=== PATIENT | male | born 1965 | race Caucasian/White ===

== ENCOUNTER 2021-01-12 02:32 | Inpatient (IN) | payer MEDICARE, MEDICAID ==
[2021-01-12 03:33] LABS: #Basophils 0.1 10x3/uL (0.0-0.2); #Eosinphils 0.2 10x3/uL (0.0-0.5); #Monocytes 0.6 10x3/uL (0.0-1.1); #Neutrophils 9.2 10x3/uL (1.5-8.4); %Eosinophils 2.2 % (0.0-6.0); %Monocytes 5.6 % (0.0-10.0); %Neutrophils 85.6 % (40.0-75.0); Hemoglobin 9.8 g/dL (13.5-17.5); Mean Corpuscular HGB CONC 34.3 g/dL (32.0-36.0); Mean Corpuscular Hemoglobin 30.3 pg (27.0-33.0); Mean Corpuscular Volume 88.5 fl (81.2-95.1); RBC Distribution Width 13.2 % (11.5-14.5); Red Blood Cell (RBC) Count 3.23 10x6/uL (4.32-5.72); White Blood Cell (WBC) Count 10.7 10x3/uL (3.5-10.5)
[2021-01-12 03:43] LABS: ALT (SGPT) 12 U/L (8-55); AST (SGOT) 16 U/L (5-34); Alkaline Phosphatase 88 U/L (40-110); Anion Gap 16 mmol/L (10-20); BUN (Urea Nitrogen) 33 mg/dL (8.4-25.7); Bilirubin, Total 0.7 mg/dL (0.2-1.2); Calc. Creatinine Clearance 0 mL/min (70-130); Calcium 9.3 mg/dL (7.8-10.44); Carbon Dioxide 26 mmol/L (22-29); Chloride 101 mmol/L (98-107); Globulin 3.4 g/dL (2.4-3.5); Glucose 274 mg/dL (70-105); Potassium 4.4 mmol/L (3.5-5.1); Protein, Total 7.4 g/dL (6.0-8.3); Sodium 139 mmol/L (136-145)
[2021-01-12 03:58] LABS: Large Platelets MODERATE; Mean Platelet Volume 9.9 fl (7.4-10.4); Platelet Count 198 10x3/uL (150-450); Platelet Morphology Comment Appears Adequate
[2021-01-12 03:59] LABS: RBC Morphology Normal
[2021-01-12 04:06] LABS: CKMB 3.9 ng/mL (0-6.6)
[2021-01-12 04:32] LABS: SARS-CoV-2 NAA Rapid Test Not Detected (NotDetected)
[2021-01-12] MEDS ORDERED: hydrALAZINE 25 MG TAB ONE (04:35)
[2021-01-12] MEDS ORDERED: hydrALAZINE 20 MG/ML VIAL SLOW IVP PRN (05:26)
[2021-01-12] MEDS ORDERED: traMADol HCl 50 MG TAB PO PRN (05:27)
[2021-01-12] MEDS ORDERED: Nitroglycerin 0.4 MG TAB (25 Tab Bottle) SL PRN (05:27)
[2021-01-12] MEDS ORDERED: Furosemide 100 MG/10 ML VIAL SLOW IVP SCH (05:30)
[2021-01-12] MEDS ORDERED: Nitroglycerin 2% Ointment 1 INCH/1 GM Packet ONE (06:21)
[2021-01-12] MEDS: Nitroglycerin 2% Ointment 1 INCH/1 GM Packet TOP SCH ×2 (07:05→11:40)
[2021-01-12 08:10] LABS: Actual Bicarbonate (HCO3a) 27.7 mEq/L (22-28); Base Excess (BEa) 3.3 mEq/L (-2.0 to +3.0); CO2 Tension 41.1 mmHg (35.0-45.0); Calcium, Ionized (arterial) 1.18 mmol/L (1.12-1.30); Carboxyhemoglobin (COHb) 0.3 gm% (0.0-3.0); Hemoglobin (Hb) 9.5 g/dL (14.0-18.0); O2 Tension (PaO2), arterial 92.7 mmHg (80.0-100.0); Potassium - ABG Lab 4.2 mmol/L (3.70-5.30); Puncture Site RRA; pH, Arterial 7.45 (7.35-7.45)
[2021-01-12 08:14] LABS: ALV-art Gradient 212.425 mmHg (0-20)
[2021-01-12] MEDS ORDERED: CALCIFEDIOL 30 MCG PO SCH (09:00)
[2021-01-12] MEDS: Acetaminophen 500 MG TAB PO SCH ×4 (09:04→21:00)
[2021-01-12] MEDS: Carvedilol 6.25 MG TAB PO SCH ×2 (09:04→21:01)
[2021-01-12] MEDS: Aspirin 81 mg Enteric Coated Tablet PO SCH (09:04)
[2021-01-12] MEDS: hydrALAZINE 25 MG TAB PO SCH ×2 (09:05→16:25)
[2021-01-12] MEDS: Fluticasone Propionate Nasal Spray 16 gm Bottle NASAL SCH (09:05)
[2021-01-12] MEDS: Clopidogrel Bisulfate 75 MG TAB PO SCH (09:05)
[2021-01-12] MEDS: Ferrous Sulfate 325 MG TAB PO SCH (09:05)
[2021-01-12] MEDS: Heparin 5,000 UNITS/ML VIAL SC SCH ×3 (09:05→21:02)
[2021-01-12] MEDS: Furosemide 40 MG TAB PO SCH (09:05)
[2021-01-12 09:06] LABS: Troponin I 2.372 ng/mL (< 0.028)
[2021-01-12] MEDS: Lantus 1000 UNITS/10 ML VIAL SC SCH ×2 (09:06→21:02)
[2021-01-12] MEDS: NIFEdipine XL 30 MG TAB PO SCH (09:06)
[2021-01-12] MEDS: Senokot S 8.6-50 MG TAB PO SCH ×2 (09:06→21:01)
[2021-01-12] MEDS ORDERED: Heparin 10,000 UNITS/ 10 ML VIAL SLOW IVP PRN (09:15)
[2021-01-12 15:24] LABS: Cardiac Risk 5.3 (Less than 4.5)
[2021-01-12] MEDS ORDERED: guaiFENesin ER 600 MG TAB PO SCH (20:30)
[2021-01-12] MEDS: Atorvastatin Calcium 40 MG TAB PO SCH (21:00)
[2021-01-13] MEDS: Ondansetron ODT 4 MG TAB PO PRN ×2 (06:21→14:11)
[2021-01-13 08:33] LABS: #Basophils 0.1 10x3/uL (0.0-0.2); #Eosinphils 0.3 10x3/uL (0.0-0.5); #Monocytes 0.6 10x3/uL (0.0-1.1); #Neutrophils 5.8 10x3/uL (1.5-8.4); %Basophils 0.9 % (0.0-2.0); %Eosinophils 4.1 % (0.0-6.0); %Lymphocytes 12.3 % (18.0-47.0); %Monocytes 7.8 % (0.0-10.0); %Neutrophils 74.5 % (40.0-75.0); Hemoglobin 8.9 g/dL (13.5-17.5); Mean Corpuscular Volume 91.3 fl (81.2-95.1); Mean Platelet Volume 10.3 fl (7.4-10.4); Platelet Count 183 10x3/uL (150-450); RBC Distribution Width 13.3 % (11.5-14.5); Red Blood Cell (RBC) Count 2.87 10x6/uL (4.32-5.72); White Blood Cell (WBC) Count 7.7 10x3/uL (3.5-10.5)
[2021-01-13 08:47] LABS: Anion Gap 13 mmol/L (10-20); BUN (Urea Nitrogen) 21 mg/dL (8.4-25.7); Calc. Creatinine Clearance 45 mL/min (70-130); Calcium 9.1 mg/dL (7.8-10.44); Carbon Dioxide 31 mmol/L (22-29); Chloride 100 mmol/L (98-107); Glucose 98 mg/dL (70-105); Potassium 3.9 mmol/L (3.5-5.1); Sodium 140 mmol/L (136-145)
[2021-01-13] MEDS ORDERED: Loperamide HCl 2 MG CAP PO PRN (09:38)
[2021-01-13] MEDS: Acetaminophen 500 MG TAB PO SCH ×5 (10:34→21:36)
[2021-01-13] MEDS: Clopidogrel Bisulfate 75 MG TAB PO SCH (10:35)
[2021-01-13] MEDS: Carvedilol 6.25 MG TAB PO SCH ×2 (10:35→20:59)
[2021-01-13] MEDS: Fluticasone Propionate Nasal Spray 16 gm Bottle NASAL SCH (10:35)
[2021-01-13] MEDS: Aspirin 81 mg Enteric Coated Tablet PO SCH (10:35)
[2021-01-13] MEDS: Ferrous Sulfate 325 MG TAB PO SCH ×2 (10:35→10:56)
[2021-01-13] MEDS: Furosemide 40 MG TAB PO SCH (10:36)
[2021-01-13] MEDS: NIFEdipine XL 30 MG TAB PO SCH (10:36)
[2021-01-13] MEDS: Senokot S 8.6-50 MG TAB PO SCH ×2 (10:37→21:00)
[2021-01-13] MEDS: Heparin 5,000 UNITS/ML VIAL SC SCH ×3 (10:37→20:51)
[2021-01-13] MEDS: Lantus 1000 UNITS/10 ML VIAL SC SCH ×2 (10:39→20:51)
[2021-01-13 12:13] LABS: Anion Gap 14 mmol/L (10-20); BUN (Urea Nitrogen) 22 mg/dL (8.4-25.7); Calc. Creatinine Clearance 44 mL/min (70-130); Calcium 9.2 mg/dL (7.8-10.44); Carbon Dioxide 30 mmol/L (22-29); Chloride 101 mmol/L (98-107); Glucose 97 mg/dL (70-105); Potassium 3.9 mmol/L (3.5-5.1); Sodium 141 mmol/L (136-145)
[2021-01-13 12:17] LABS: Troponin I 2.126 ng/mL (< 0.028)
[2021-01-13] MEDS ORDERED: Loratadine 10 MG TAB PO SCH (14:45)
[2021-01-13 15:09] LABS: Troponin I 2.144 ng/mL (< 0.028)
[2021-01-13] MEDS: Atorvastatin Calcium 40 MG TAB PO SCH (20:59)
[2021-01-13 21:27] LABS: Critical Call Chem Troponin I RESULT DECREASING; Troponin I 1.726 ng/mL (< 0.028)
[2021-01-14 05:41] LABS: #Basophils 0.1 10x3/uL (0.0-0.2); #Eosinphils 0.3 10x3/uL (0.0-0.5); #Monocytes 0.6 10x3/uL (0.0-1.1); #Neutrophils 4.3 10x3/uL (1.5-8.4); %Basophils 1.4 % (0.0-2.0); %Eosinophils 4.6 % (0.0-6.0); %Lymphocytes 16.1 % (18.0-47.0); %Monocytes 9.3 % (0.0-10.0); %Neutrophils 68.3 % (40.0-75.0); Hemoglobin 8.2 g/dL (13.5-17.5); Mean Corpuscular HGB CONC 33.5 g/dL (32.0-36.0); Mean Corpuscular Hemoglobin 30.4 pg (27.0-33.0); Mean Corpuscular Volume 90.7 fl (81.2-95.1); Mean Platelet Volume 10.2 fl (7.4-10.4); Platelet Count 179 10x3/uL (150-450); RBC Distribution Width 13.1 % (11.5-14.5); White Blood Cell (WBC) Count 6.3 10x3/uL (3.5-10.5)
[2021-01-14 05:57] LABS: Anion Gap 14 mmol/L (10-20); BUN (Urea Nitrogen) 31 mg/dL (8.4-25.7); Calc. Creatinine Clearance 35 mL/min (70-130); Calcium 8.8 mg/dL (7.8-10.44); Carbon Dioxide 29 mmol/L (22-29); Chloride 101 mmol/L (98-107); Glucose 78 mg/dL (70-105); Potassium 3.8 mmol/L (3.5-5.1); Sodium 140 mmol/L (136-145)
[2021-01-14 06:19] VITALS: BMI 40.8
[2021-01-14] MEDS ORDERED: Loratadine 10 MG TAB PO SCH (09:00)
[2021-01-14] MEDS: NIFEdipine XL 30 MG TAB PO SCH ×2 (09:04→09:29)
[2021-01-14] MEDS: Ferrous Sulfate 325 MG TAB PO SCH (09:05)
[2021-01-14] MEDS: Clopidogrel Bisulfate 75 MG TAB PO SCH (09:05)
[2021-01-14] MEDS: Carvedilol 6.25 MG TAB PO SCH (09:05)
[2021-01-14] MEDS: Furosemide 40 MG TAB PO SCH (09:05)
[2021-01-14] MEDS: Fluticasone Propionate Nasal Spray 16 gm Bottle NASAL SCH (09:05)
[2021-01-14] MEDS: Acetaminophen 500 MG TAB PO SCH ×4 (09:05→15:56)
[2021-01-14] MEDS: Aspirin 81 mg Enteric Coated Tablet PO SCH (09:05)
[2021-01-14] MEDS: Heparin 5,000 UNITS/ML VIAL SC SCH ×3 (09:06→14:41)
[2021-01-14] MEDS: Lantus 1000 UNITS/10 ML VIAL SC SCH ×2 (09:06→09:29)
[2021-01-14] MEDS: Senokot S 8.6-50 MG TAB PO SCH (09:27)
[2021-01-14 12:19] VITALS: BP 165/75; TEMP 97.5
[2021-01-14] MEDS: Ondansetron ODT 4 MG TAB PO PRN (14:01)
== END 2021-01-14 19:14 | DRG 280 ==
LOC: CSHERS 02:32 → OBSVTOIN 05:17 → CSHTELE 05:17 → INTOOBSV 05:17 → UNDOADMOB 05:17 → INTOOBSV 05:53 → CSHTELE 05:53 → UNDOADMOB 05:53 → OBSVTOIN 01-14 04:00 → CSHTELE 01-14 04:00 → UNDODISIN 01-14 19:14
PROVIDERS: ADMIT Family Medicine; ATTEND Family Medicine
PROC: 5A1D70Z Performance of Urinary Filtration, Intermittent, Less than 6 Hours Per Day (ICD-10-PCS; principal; 2021-01-12)
PROC: 5A1D70Z Performance of Urinary Filtration, Intermittent, Less than 6 Hours Per Day (ICD-10-PCS; 2021-01-14)
DX: I13.2 Hypertensive heart and chronic kidney disease with heart failure and with stage 5 chronic kidney disease, or end stage renal disease (principal); J96.01 Acute respiratory failure with hypoxia; I21.4 Non-ST elevation (NSTEMI) myocardial infarction; N18.6 End stage renal disease; I50.43 Acute on chronic combined systolic (congestive) and diastolic (congestive) heart failure; Z68.41 Body mass index [BMI] 40.0-44.9, adult; E11.22 Type 2 diabetes mellitus with diabetic chronic kidney disease; Z99.2 Dependence on renal dialysis; Z79.4 Long term (current) use of insulin; E66.9 Obesity, unspecified; I48.0 Paroxysmal atrial fibrillation; I25.10 Atherosclerotic heart disease of native coronary artery without angina pectoris; Z95.5 Presence of coronary angioplasty implant and graft; D63.1 Anemia in chronic kidney disease; I25.2 Old myocardial infarction; Z89.512 Acquired absence of left leg below knee; Z20.822 Contact with and (suspected) exposure to COVID-19
CPT/HCPCS: 36415; 36416; 36600; 71045; 80048; 80053; 80061; 82553; 82805; 83735; 83880; 84484; 85025; 90935; 93005; 93306; 94660; 94760; 96372; G0257; G0378; J1644; J1815; Q0162; U0002

== ENCOUNTER 2021-01-19 07:32 | Observation (INO) | payer MEDICARE, MEDICAID ==
[2021-01-19] MEDS ORDERED: Nitroglycerin 2% Ointment 1 INCH/1 GM Packet ONE (07:40)
[2021-01-19 08:05] LABS: Actual Bicarbonate (HCO3a) 23.4 mEq/L (22-28); CO2 Tension 42.2 mmHg (35.0-45.0); Calcium, Ionized (arterial) 1.17 mmol/L (1.12-1.30); Carboxyhemoglobin (COHb) 0.3 gm% (0.0-3.0); Hemoglobin (Hb) 10.7 g/dL (14.0-18.0); O2 Tension (PaO2), arterial 108.7 mmHg (80.0-100.0); Potassium - ABG Lab 4.2 mmol/L (3.70-5.30); Puncture Site RRA; pH, Arterial 7.36 (7.35-7.45)
[2021-01-19 08:41] LABS: ALT (SGPT) 13 U/L (8-55); AST (SGOT) 15 U/L (5-34); Albumin 4.1 g/dL (3.5-5.0); Alkaline Phosphatase 96 U/L (40-110); Anion Gap 15 mmol/L (10-20); BUN (Urea Nitrogen) 40 mg/dL (8.4-25.7); Bilirubin, Total 0.6 mg/dL (0.2-1.2); Calc. Creatinine Clearance 0 mL/min (70-130); Calcium 9.1 mg/dL (7.8-10.44); Carbon Dioxide 27 mmol/L (22-29); Chloride 104 mmol/L (98-107); Globulin 3.6 g/dL (2.4-3.5); Glucose 204 mg/dL (70-105); Potassium 4.2 mmol/L (3.5-5.1); Protein, Total 7.7 g/dL (6.0-8.3); Sodium 142 mmol/L (136-145)
[2021-01-19] MEDS ORDERED: Furosemide 40 MG/4 ML VIAL ONE (09:00)
[2021-01-19] MEDS ORDERED: Cefepime 2 GM VIAL ONE (09:00)
[2021-01-19 09:03] LABS: CKMB 3.1 ng/mL (0-6.6)
[2021-01-19 09:28] LABS: Hep B Surf Ag Non-Reactive S/CO (NonReactive)
[2021-01-19 09:32] LABS: HBSAg Index 0.14 S/CO (0-0.99)
[2021-01-19 09:49] LABS: #Basophils 0.1 10x3/uL (0.0-0.2); #Eosinphils 0.2 10x3/uL (0.0-0.5); #Monocytes 0.5 10x3/uL (0.0-1.1); #Neutrophils 6.9 10x3/uL (1.5-8.4); %Basophils 1.3 % (0.0-2.0); %Eosinophils 2.5 % (0.0-6.0); %Lymphocytes 8.5 % (18.0-47.0); %Monocytes 5.7 % (0.0-10.0); %Neutrophils 81.2 % (40.0-75.0); Hemoglobin 8.8 g/dL (13.5-17.5); Mean Corpuscular HGB CONC 33.6 g/dL (32.0-36.0); Mean Corpuscular Hemoglobin 30.3 pg (27.0-33.0); Mean Corpuscular Volume 90.3 fl (81.2-95.1); Mean Platelet Volume 10.3 fl (7.4-10.4); Platelet Count 213 10x3/uL (150-450); RBC Distribution Width 13.1 % (11.5-14.5); White Blood Cell (WBC) Count 8.6 10x3/uL (3.5-10.5)
[2021-01-19] MEDS ORDERED: VANCOMYCIN 2 GRAM/400 ML BAG 2 GM in Premix Bag 1 BAG IVPB SCH (11:00)
[2021-01-19] MEDS ORDERED: Heparin 10,000 UNITS/ 10 ML VIAL SLOW IVP PRN (11:21)
[2021-01-19 11:27] LABS: Troponin I 0.134 ng/mL (< 0.028)
[2021-01-19] MEDS ORDERED: Nitroglycerin 0.4 MG TAB (25 Tab Bottle) SL PRN (11:44)
[2021-01-19] MEDS ORDERED: Dextrose 5% in Water 1,000 ML IV PRN (14:03)
[2021-01-19] MEDS ORDERED: Dextrose 50% Abboject 50 ML SYRINGE SLOW IVP PRN (14:03)
[2021-01-19 14:56] LABS: HBSAB Concentration Less than 8.00 mIU/mL; Hep B Core Total Ab Non-Reactive (NonReactive); Hep B Core Total Index 0.12 S/CO (0-0.79); Hep B Surf AB Non-Reactive (NonReactive); Hep C IgG Ab Non-Reactive (NonReactive); Hep C Index 0.06 S/CO (0-0.79)
[2021-01-19 14:59] LABS: Troponin I 0.242 ng/mL (< 0.028)
[2021-01-19 16:13] VITALS: BMI 31.1
[2021-01-19] MEDS ORDERED: Loratadine 10 MG TAB PO PRN (20:13)
[2021-01-19] MEDS: guaiFENesin ER 600 MG TAB PO SCH (20:47)
[2021-01-19] MEDS: Fluticasone Propionate Nasal Spray 16 gm Bottle NASAL SCH (20:48)
[2021-01-19] MEDS ORDERED: Famotidine 20 MG TAB PO SCH (21:00)
[2021-01-19] MEDS ORDERED: Zolpidem Tartrate 5 MG TAB PO SCH (21:00)
[2021-01-19] MEDS: HumaLOG 300 UNITS/3 ML VIAL SC PRN (21:02)
[2021-01-20 04:53] LABS: #Basophils 0.1 10x3/uL (0.0-0.2); #Eosinphils 0.3 10x3/uL (0.0-0.5); #Monocytes 0.7 10x3/uL (0.0-1.1); #Neutrophils 5.7 10x3/uL (1.5-8.4); %Lymphocytes 11.2 % (18.0-47.0); %Monocytes 8.8 % (0.0-10.0); %Neutrophils 74.5 % (40.0-75.0); Hemoglobin 8.9 g/dL (13.5-17.5); Mean Corpuscular HGB CONC 33.1 g/dL (32.0-36.0); Mean Corpuscular Hemoglobin 30.1 pg (27.0-33.0); Mean Corpuscular Volume 90.9 fl (81.2-95.1); Mean Platelet Volume 9.8 fl (7.4-10.4); Platelet Count 181 10x3/uL (150-450); Red Blood Cell (RBC) Count 2.96 10x6/uL (4.32-5.72); White Blood Cell (WBC) Count 7.7 10x3/uL (3.5-10.5)
[2021-01-20 05:09] LABS: Albumin 3.5 g/dL (3.5-5.0); Anion Gap 15 mmol/L (10-20); BUN (Urea Nitrogen) 30 mg/dL (8.4-25.7); BUN/Creatinine Ratio 8.65; Calc. Creatinine Clearance 38 mL/min (70-130); Calcium 8.9 mg/dL (7.8-10.44); Carbon Dioxide 29 mmol/L (22-29); Cardiac Risk 7.4 (Less than 4.5); Chloride 100 mmol/L (98-107); Cholesterol 140 mg/dl (< 200 Desired); Glucose 211 mg/dL (70-105); HDL Cholesterol 19 mg/dL (>60 Neg Risk); LDL Cholesterol, Calculated 55 mg/dL; Phosphorus 3.7 mg/dL (2.3-4.7); Potassium 4.1 mmol/L (3.5-5.1); Sodium 140 mmol/L (136-145); Triglycerides 329 mg/dL (Less than 150)
[2021-01-20] MEDS: HumaLOG 300 UNITS/3 ML VIAL SC PRN ×2 (06:24→12:07)
[2021-01-20] MEDS: guaiFENesin ER 600 MG TAB PO SCH (08:09)
[2021-01-20] MEDS: Fluticasone Propionate Nasal Spray 16 gm Bottle NASAL SCH (08:09)
[2021-01-20] MEDS ORDERED: Clopidogrel Bisulfate 75 MG TAB PO SCH (09:00)
[2021-01-20] MEDS ORDERED: Furosemide 40 MG TAB PO SCH (09:00)
[2021-01-20] MEDS ORDERED: Cefepime 0.5 GM in Sodium Chloride 0.9% 100 ML IVPB SCH ×2 (09:00→15:00)
[2021-01-20] MEDS ORDERED: NIFEdipine XL 30 MG TAB PO SCH (09:00)
[2021-01-20] MEDS ORDERED: Carvedilol 6.25 MG TAB PO SCH ×2 (09:00→21:00)
[2021-01-20] MEDS ORDERED: Aspirin Chewable 81 MG TAB PO SCH (09:00)
[2021-01-20] MEDS ORDERED: Heparin 5,000 UNITS/ML VIAL SC SCH (09:00)
[2021-01-20] MEDS ORDERED: NIFEdipine XL 90 MG TAB PO SCH (09:00)
[2021-01-20 09:03] LABS: Troponin I 0.137 ng/mL (< 0.028)
[2021-01-20 11:55] VITALS: BP 167/71; TEMP 98
[2021-01-20] MEDS ORDERED: Atorvastatin Calcium 40 MG TAB PO SCH (21:00)
[2021-01-21] MEDS ORDERED: Clopidogrel Bisulfate 75 MG TAB PO SCH (09:00)
[2021-01-21] MEDS ORDERED: Furosemide 40 MG TAB PO SCH ×2 (09:00)
[2021-01-21] MEDS ORDERED: NIFEdipine XL 90 MG TAB PO SCH (09:00)
== END 2021-01-20 16:07 | disposition home or self-care (01) ==
LOC: CSHERS 07:32 → SUATTDRO 07:32 → CSHTELE 09:42 → UNDOADMOB 15:29 → CSHTELE 15:29 → INTOOBSV 15:29
PROVIDERS: ADMIT Family Medicine; ATTEND Internal Medicine
DX: J96.01 Acute respiratory failure with hypoxia (principal); E87.70 Fluid overload, unspecified; E11.22 Type 2 diabetes mellitus with diabetic chronic kidney disease; I13.0 Hypertensive heart and chronic kidney disease with heart failure and stage 1 through stage 4 chronic kidney disease, or unspecified chronic kidney disease; N18.6 End stage renal disease; J18.9 Pneumonia, unspecified organism; I25.10 Atherosclerotic heart disease of native coronary artery without angina pectoris; D63.1 Anemia in chronic kidney disease; I48.0 Paroxysmal atrial fibrillation; E66.9 Obesity, unspecified; Z79.899 Other long term (current) drug therapy; Z79.82 Long term (current) use of aspirin; Z91.15 Patient's noncompliance with renal dialysis; I50.9 Heart failure, unspecified
CPT/HCPCS: 36600; 71045; 80053; 80061; 80069; 82553; 82805; 82962 ×2; 83605; 83880; 84484 ×3; 85025 ×2; 86704; 86706; 86803; 87040; 87340; 93005; 94660; 94760; 96365; 96372; 96375; 99285; G0378 ×3; 36415; 36416; 90935; G0257; J0692; J1644; J1815; J1940; J3370